=== PATIENT | female | born 1960 | race Caucasian/White ===

== ENCOUNTER 2016-10-11 11:01 | Day surgery (SDC) | payer OTHER ==
[~2016-10-11] VITALS: Ht 160 cm; Wt 79.5 kg
[~2016-10-11 11:01] MED LIST: OMEP20CA16 PO; ONDA4TAB8 PO
[2016-10-11 12:42] VITALS: Ht 160 cm; Wt 79.5 kg
[2016-10-11 13:11] VITALS: BP 152/79; PULSE 64; RESP 20
[2016-10-11] MEDS ORDERED: ONDA2VIA31 PO (13:11)
[2016-10-11] MEDS ORDERED: OMEP20CA16 PO (13:11)
[2016-10-11 14:06] VITALS: BP 111/66; RESP 20
--- NOTE | 2016-10-12 05:42 | GILP ---
DATE OF PROCEDURE: 10/11/2016 PREOPERATIVE DIAGNOSES: 1. Abdominal pain. 2. History of hematemesis. POSTOPERATIVE DIAGNOSES: 1. Gastritis with erosions. 2. Gastric mucosal biopsies were taken for Helicobacter pylori test. PROCEDURE PERFORMED: Esophagogastroduodenoscopy and biopsy. SURGEON: Edmundo Jefferson MD. INDICATION FOR PROCEDURE: Ms. Darcy Mcintosh is a 56-year-old female patient who had upper abdominal pain, nausea and vomiting. The patient also gave history of hematemesis, so the patient was scheduled for endoscopic examination for further evaluation. The procedure and possible complications were well explained to the patient. She understood and consented to the procedure. DESCRIPTION OF PROCEDURE: Under the influence of anesthesia the gastroscope was carefully introduced into the esophagus and under direct vision it was advanced to the stomach, into the pylorus, into the duodenal bulb, and descending duodenum. Findings esophagus, mucosa was normal. Stomach, the patient had gastritis with erosions. Gastric mucosal biopsies were taken for Helicobacter pylori test. Duodenum was normal. The patient tolerated the procedure very well and there was no complications from the procedure. At the end of procedure she was awake with stable vital signs and she was discharged home in the care of her family. IMPRESSION: 1. Gastritis with erosions. 2. Gastric mucosal biopsies were taken for Helicobacter pylori test. PLAN: 1. Continue omeprazole. 2. Zantac 300 mg p.o. q.h.s. 3. Zofran p.r.n. for nausea. 4. Await Helicobacter pylori test report. Dictated By: MD CHRISTIANO Reece/polo/brigitte /Document#: [id number] CC: Edmundo Jefferson MD;*[facility]*
[2016-10-12] MEDS ORDERED: PROPOFOL 60 ML ONE (18:02)
[2016-10-12] MEDS ORDERED: LIDOCAINE 2% (SDV) 5 ML INJ ONE (18:02)
== END 2016-10-11 14:51 | disposition home or self-care (01) ==
LOC: GIL 11:01
PROVIDERS: ATTEND Internal Medicine Gastroenterology
DX: K29.60 Other gastritis without bleeding (principal); E66.9 Obesity, unspecified; Z68.31 Body mass index [BMI] 31.0-31.9, adult
CPT/HCPCS: 43239; 87081; Z7610

== ENCOUNTER 2017-01-10 13:21 | Day surgery (SDC) | payer OTHER ==
[~2017-01-10] VITALS: Ht 160 cm; Wt 80.9 kg
[~2017-01-10 13:21] MED LIST changes: +ONDA2VIA31 PO
[2017-01-10 14:30] VITALS: Ht 160 cm; Wt 80.9 kg
[2017-01-10] MEDS ORDERED: ZANTAC (14:33)
[2017-01-10 14:49] VITALS: BP 122/71; PULSE 70; RESP 19
[2017-01-10] MEDS ORDERED: PROPOFOL 40 ML ONE (15:06)
[2017-01-10] MEDS ORDERED: LIDOCAINE 2% (SDV) 5 ML INJ ONE (15:06)
[2017-01-10] MEDS ORDERED: MIDAZOLAM 1 MG/ML 2 ML INJ ONE (15:07)
--- NOTE | 2017-01-10 15:50 | OPPN ---
Date/Time of Note Date/Time of Note DATE: 01/10/17 TIME: 15:49 Operative Report Preoperative Diagnosis Change in bowel habit Rectal bleeding Postoperative Diagnosis Diverticulosis of the colon Internal hemorrhoids Operation/Procedure Performed Colonoscopy Surgeon see signature line assistant toddler teacher None Anesthesia: MAC Estimated blood loss: none Transfusion Required none Specimen None Grafts/Implants none Complications none RAJ MARROQUIN MD Jan 10, 2017 15:50
--- NOTE | 2017-01-10 15:50 | OPPN ---
Date/Time of Note Date/Time of Note DATE: 01/10/17 TIME: 15:49 Operative Report Preoperative Diagnosis Change in bowel habit Rectal bleeding Postoperative Diagnosis Diverticulosis of the colon Internal hemorrhoids Operation/Procedure Performed Colonoscopy Surgeon see signature line operational assistant None Anesthesia: MAC Estimated blood loss: none Transfusion Required none Specimen None Grafts/Implants none Complications none RAJ MARROQUIN MD Jan 10, 2017 15:50
--- NOTE | 2017-01-10 15:50 | OPPN ---
Date/Time of Note Date/Time of Note DATE: 01/10/17 TIME: 15:49 Operative Report Preoperative Diagnosis Change in bowel habit Rectal bleeding Postoperative Diagnosis Diverticulosis of the colon Internal hemorrhoids Operation/Procedure Performed Colonoscopy Surgeon see signature line family services assistant None Anesthesia: MAC Estimated blood loss: none Transfusion Required none Specimen None Grafts/Implants none Complications none RAJ MARROQUIN MD Jan 10, 2017 15:50
[2017-01-10 16:17] VITALS: BP 111/63; RESP 16
--- NOTE | 2017-01-11 03:59 | GILP ---
DATE OF PROCEDURE: NAME OF PROCEDURE: Colonoscopy. SURGEON: Edmundo Jefferson MD PREOPERATIVE DIAGNOSES: 1. Change in bowel habit. 2. Rectal bleeding. POSTOPERATIVE DIAGNOSES 1. Colonoscopy all the way to the cecum. 2. Diverticulosis of the colon. 3. Internal hemorrhoids. INDICATION FOR THE PROCEDURE: Ms. Darcy Mcintosh is a 56-year-old female patient who noticed a kolby nge in the bowel habit and rectal bleeding. Patient was scheduled for colonoscopic examination for further evaluation. The procedure and possible complications were well explained to the patient. The patient understood and consented to the procedure. DESCRIPTION OF PROCEDURE: Under the influence of anesthesia, the colonoscope was carefully introduc ed in the rectum and under direct vision, it was advanced all the way to the cecum. FINDINGS: The patient had diverticulosis of the sigmoid colon. She had internal hemorrhoids. No c olitis or neoplasm was identified. She tolerated the procedure very well. There was no complication from the procedure. At the end of the procedure, she was awake with stable vital signs and she was discharged home to the care of her family. IMPRESSION: Please see postoperative diagnoses. PLAN: 1. Anusol-HC 2.5% cream b.i.d. 2. Citrucel 1 scoopful dissolved in a glass of water p.o. b.i.d. Dictated By: EDMUNDO ALVARADO/SOY Conf#: [id number] DID#: [id number]
== END 2017-01-10 16:16 | disposition home or self-care (01) ==
LOC: GIL 13:21
PROVIDERS: ATTEND Internal Medicine Gastroenterology
DX: R19.4 Change in bowel habit (principal); K57.90 Diverticulosis of intestine, part unspecified, without perforation or abscess without bleeding; K64.8 Other hemorrhoids; Z85.3 Personal history of malignant neoplasm of breast
CPT/HCPCS: 45378; 84703; J2250; Z7610

== ENCOUNTER 2017-07-17 09:12 | Day surgery (SDC) | END 2017-07-17 12:05 | disposition home or self-care (01) ==

== ENCOUNTER → 2017-07-20 | Emergency (ER) | END | disposition home or self-care (01) ==

== ENCOUNTER 2018-07-18 09:57 | Day surgery (SDC) | payer OTHER ==
[~2018-07-18] VITALS: Ht 160 cm; Wt 77.0 kg
[~2018-07-18 09:57] MED LIST changes: +CEPH-443 PO; +CHOL4POW3 PO; +HYDR-4011 PO; +HYDR-843 PO; +METO10TA3 PO; +NAPR-688 PO; +NITR-58 PO; -OMEP20CA16 PO; -ONDA2VIA31 PO; +ONDA4TAB14 PO; -ONDA4TAB8 PO; +POLY17PO6 PO; +SUCR1TAB56 PO
[2018-07-18 11:21] VITALS: Ht 160 cm; Wt 77.0 kg
[2018-07-18] MEDS ORDERED: anusol PR (11:32)
--- NOTE | 2018-07-18 11:39 | PREAC ---
Date/Time of Note Date/Time of Note DATE: 07/18/18 TIME: 11:38 Anesthesia Eval and Record Evaluation Time Pre-Procedure Interview DATE: 07/18/18 TIME: 11:38 Age 58 Sex female NPO: 8 hrs Preoperative diagnosis abdominal pain, hematemesis Planned procedure EGD Past Medical History Past Medical History: Includes (left breast cancer) GI: Other (gastritis, diverticulosis) Surgery & Anesthesia Issues No known issue Meds Anticoagulation: No Beta Soham within 24 hr: No Reason Beta Soham not given: Pt. not on B-Sohma Reported Medications [anusol] No Conflict Check, [place] 07/18/18 Cholestyramine (with Sugar) (Questran Packet) 4 Gm Powd.pack, 4 GM PO BID 07/20/17 Sucralfate* (Carafate*) 1 Gm Tab, 1 GM PO AC MEALS AND BEDTIME, TAB 07/20/17 Discontinued Scripts Polyethylene Glycol* (Miralax*) 17 Gm Powd.pack, 17 GM PO DAILY, #7 Prov:KATERINA GUTHRIE DO 07/21/17 Metoclopramide Hcl* (Metoclopramide Hcl*) 10 Mg Tablet, 10 MG PO Q6H PRN for NAUSEA AND OR VOMITING, #14 TAB Prov:JERRIKATERINAKARIE CAAL 07/21/17 Hydroxyzine Hcl* (Hydroxyzine Hcl*) 25 Mg Tablet, 25 MG PO Q8H PRN for ITCHING, #30 TAB Prov:JERRIKATERINAKRAIE CAAL 07/21/17 Ondansetron (Ondansetron Odt) 4 Mg Tab.rapdis, 4 MG PO Q6H PRN for NAUSEA AND/OR VOMITING, #10 TAB Prov:KATERINA GUTHRIE DO 07/21/17 Nitrofurantoin Monohyd Macrocr* (Macrobid*) 100 Mg Capsr, 100 MG PO BID for 10 Days, CAP Prov:KATERINA GUTHRIE DO 07/21/17 Cephalexin* (Keflex*) 500 Mg Capsule, 500 MG PO QID for 5 Days, CAP Prov:JERRIKATERINAKARIE CAAL 07/21/17 Naproxen* (Naproxen*) 500 Mg Tablet, 500 MG PO BID PRN for PAIN, #20 TAB Prov:KATERINA GUTHRIE DO 07/21/17 Hydrocodone/Acetaminophen ([place] 5-325 Tablet) 1 Each Tablet, 1 EACH PO Q6 for PAIN, #14 TAB Prov:KATERINA GUTHRIE DO 07/21/17 Meds reviewed: Yes Allergies Coded Allergies: No Known Allergy (Unverified , 07/18/18) Allergies Reviewed: Yes Labs/Studies Labs Reviewed: Reviewed by anesthesiologist test: N/A Pre-procedure Exam Airway: Adequate mouth opening, Adequate thyromental dist Mallampati: Mallampati II Teeth: Normal Lung: Normal Heart: Normal ASA Physical Status ASA physical status: 2 Emergency: None Planned Anesthetic General/MAC: Mask Pre-operative Attestations Prior to commencing anesthesia and surgery, the patient was re-evaluated, there was verification of: *The patient's identity *The results of appropriate recent lab work and preoperative vital signs *The above evaluation not changing prior to induction *Anesthetic plan, risk benefits, alternative and complications discussed with patient/family; questions answered; patient/family understands, accepts and wishes to proceed. [employer] Installer used BIANKA GREGORY MD July 18, 2018 11:39
[2018-07-18 11:47] VITALS: BP 113/71; PULSE 68; RESP 18
[2018-07-18] MEDS ORDERED: PROPOFOL 20 ML ONE ×2 (11:48→12:21)
[2018-07-18] MEDS ORDERED: LIDOCAINE 2% (SDV) 5 ML INJ ONE (11:48)
--- NOTE | 2018-07-18 12:12 | PAC ---
Date/Time of Note Date/Time of Note DATE: 07/18/18 TIME: 12:12 Post-Anesthesia Notes Post-Anesthesia Note Last documented vital signs Vital Signs Date Temp Pulse Resp B/P (MAP) Pulse Ox O2 O2 Flow FiO2 Time Delivery Rate 07/18/18 97.2 68 18 113/71 100 Room Air 11:47 (85) Activity: WNL Respiratory function: WNL Cardiovascular function: WNL Mental status: Baseline Pain reasonably controlled: Yes Hydration appropriate: Yes Nausea/Vomiting absent: Yes Comments BP: 94/61 HR: 78 RR: 15 T: 98 SaO2: 99% BIANKA GREGORY MD July 18, 2018 12:12
[2018-07-18 12:28] VITALS: BP 110/67; PULSE 64; RESP 16
== END 2018-07-18 14:31 | disposition home or self-care (01) ==
LOC: GIL 09:57
PROVIDERS: ATTEND Internal Medicine Gastroenterology
DX: K21.9 Gastro-esophageal reflux disease without esophagitis (principal); K29.60 Other gastritis without bleeding
CPT/HCPCS: 43239; 88305; 88312; Z7610